=== PATIENT | female | born 1970 | race African-American/Black ===

== ENCOUNTER 2020-10-26 23:39 | Emergency (ER) | payer MEDICAID ==
[~2020-10-26] VITALS: Ht 162.6 cm; Wt 59.0 kg
[2020-10-27 00:15] VITALS: BP 109/60
[2020-10-27] MEDS ORDERED: METOCLOPRAMIDE HCL 10MG TABLET PO ONE (00:15)
[2020-10-27] MEDS ORDERED: KETOROLAC 30MG/ML VIAL IM ONE (00:15)
[2020-10-27] MEDS ORDERED: DIPHENHYDRAMINE 25MG CAPSULE PO ONE (00:15)
[2020-10-27] MEDS ORDERED: IBUP-2029 MT (00:57)
== END 2020-10-27 01:07 | disposition home or self-care (01) ==
LOC: ER 23:39
DX: R51.9 Headache, unspecified (principal); E11.9 Type 2 diabetes mellitus without complications
CPT/HCPCS: 82962; 96372; 99283; J1885; J8597; Q0163

== ENCOUNTER 2022-02-28 20:32 | Emergency (ER) | payer MEDICAID ==
[~2022-02-28 20:32] MED LIST: IBUP-2029 MT
== END 2022-02-28 21:00 | disposition left against medical advice (07) ==
LOC: ER 20:32
DX: R51.9 Headache, unspecified (principal)
CPT/HCPCS: 99281

== ENCOUNTER 2022-07-25 05:03 | Emergency (ER) | payer MEDICAID ==
[~2022-07-25] VITALS: Ht 165.1 cm; Wt 72.0 kg
[2022-07-25 08:14] VITALS: BP 138/70
[2022-07-25] MEDS ORDERED: ACETAMINOPHEN 325MG TABLET PO ONE (08:15)
[2022-07-25] MEDS ORDERED: IBUPROFEN 400MG TABLET PO ONE (08:15)
[2022-07-25] MEDS ORDERED: TOPUD MT (09:02)
== END 2022-07-25 09:51 | disposition home or self-care (01) ==
LOC: ER 05:03
DX: J06.9 Acute upper respiratory infection, unspecified (principal); G43.909 Migraine, unspecified, not intractable, without status migrainosus; E11.9 Type 2 diabetes mellitus without complications
CPT/HCPCS: 81025; 99283

== ENCOUNTER 2025-06-08 03:03 | Emergency (ER) | payer MEDICAID, OTHER ==
[~2025-06-08] VITALS: Ht 162.6 cm; Wt 80.0 kg
[~2025-06-08 03:03] MED LIST changes: +IBUP-1455 MT; -IBUP-2029 MT; +TOPUD MT
[2025-06-08 03:26] VITALS: O2SAT 100
[2025-06-08] MEDS: DIPHENHYDRAMINE 25MG CAPSULE PO ONE (03:53)
[2025-06-08] MEDS: METOCLOPRAMIDE HCL 10MG/2ML VIAL IM ONE (03:53)
[2025-06-08] MEDS: KETOROLAC 30MG/ML VIAL IM ONE (03:53)
[2025-06-08 05:10] VITALS: BP 114/71; PULSE 67; RESP 18; TEMP 36.7; O2SAT 100
== END 2025-06-08 05:15 | disposition home or self-care (01) ==
LOC: ER 03:12
DX: R51.9 Headache, unspecified (principal); E11.9 Type 2 diabetes mellitus without complications; Z79.899 Other long term (current) drug therapy; Z98.890 Other specified postprocedural states
CPT/HCPCS: 99285; 70450; 96372; J1885; Q0163; J2765